=== PATIENT | male | born 1930 | race Caucasian/White ===

== ENCOUNTER 2018-02-07 12:18 | Inpatient (IN) | payer MEDICAID, MEDICARE ==
[~2018-02-07] VITALS: Ht 182.9 cm; Wt 88.5 kg
[~2018-02-07 12:18] MED LIST: ATEN50TA8 PO; HYDR-3229 PO; HYDR1TAB32 PO; OMEP40EC1 PO
--- NOTE | 2018-02-07 12:18 | NUR ---
Patient BIBA BLS, transferred to bed 8. RN evaluating patient at bedside.
--- NOTE | 2018-02-07 12:19 | NUR ---
Dr. Moreau evaluating patient at bedside.
[2018-02-07 12:23] VITALS: BP 172/101
--- NOTE | 2018-02-07 12:28 | NUR ---
87 YO MALE BIB EMS FROM FIELD FOR BACK PAIN R/T FALL TODAY. DENIES N/V/D; SKIN IS PINK/WARM/DRY; AAOX4 WITH EVEN AND STEADY GAIT; LUNGS CLEAR BL; HR EVEN AND REGULAR; PT DENIES ANY FEVER, CP, SOB, OR COUGH AT THIS TIME; PATIENT STATES PAIN OF 6/10 AT THIS TIME; VSS; PATIENT POSITIONED FOR COMFORT; HOB ELEVATED; BEDRAILS UP X2; BED DOWN. ER MD MADE AWARE OF PT STATUS.
--- NOTE | 2018-02-07 12:33 | NUR ---
PATIENT TAKEN IN [facility] TO XRAY
--- NOTE | 2018-02-07 12:48 | NUR ---
PATIENT BACK FROM XRAY IN [facility].
--- NOTE | 2018-02-07 12:50 | NUR ---
Dr. Moreau evaluating patient at bedside.
[2018-02-07] MEDS ORDERED: NACL 0.9% 1,000 ML IV ONE (13:10)
[2018-02-07 13:25] LABS: BASOPHILS % (AUTO) 0.4 % (0.0-2.0); EOSINOPHILS % (AUTO) 0.1 % (0.0-4.0); HEMATOCRIT 41.2 % (36-52); HEMOGLOBIN 13.2 g/dL (12.0-18.0); LYMPHOCYTES # (AUTO) 0.9 K/uL (2.0-11.5); LYMPHOCYTES % (AUTO) 9.7 % (20.5-51.1); MEAN CORPUSCULAR HEMOGLOBIN 29 pg (27-31); MEAN CORPUSCULAR HGB CONC 32 g/dL (33-37); MEAN CORPUSCULAR VOLUME 90.4 fL (80-94); MONOCYTES # (AUTO) 0.6 K/uL (0.8-1.0); MONOCYTES % (AUTO) 6.7 % (1.7-9.3); NEUTROPHILS # (AUTO) 7.7 K/uL (1.8-7.7); NEUTROPHILS % (AUTO) 83.1 % (42.2-75.2); PLATELET COUNT (AUTO) 206 K/uL (140-450); RED BLOOD CELL COUNT(AUTO) 4.55 MIL/uL (4.20-6.10); RED CELL DISTRIBUTION WIDTH 14.3 % (11.6-13.7); WHITE BLOOD COUNT (AUTO) 9.3 K/uL (4.8-10.8)
[2018-02-07 13:36] LABS: ANION GAP 18.4 (8-16); CARBON DIOXIDE 25.6 mmol/L (21-32); CHLORIDE 106 mmol/L (98-107); GLUCOSE 100 mg/dL (74-106); SODIUM SERUM 145 mmol/L (136-145); UREA NITROGEN, BLOOD 56 mg/dL (7-18)
[2018-02-07 13:41] LABS: ALBUMIN 4.1 g/dL (3.4-5.0); ASPARTATE AMINOTRANSFERASE 22 U/L (15-37); TOTAL BILIRUBIN 0.6 mg/dL (0.0-1.0)
[2018-02-07] MEDS ORDERED: ASPIRIN 81 MG TAB.CHEW PO ONE (14:10)
[2018-02-07] MEDS ORDERED: ACETAMINOPHEN 325 MG TAB PO PRN (15:05)
[2018-02-07] MEDS ORDERED: ONDANSETRON 4 MG/2 ML VIAL IVP PRN (15:05)
--- NOTE | 2018-02-07 15:40 | NUR ---
Patient will be admitted to care of DR MENDOZA. Admited to MED SURG. Will go to [id number]. Belongings list completed. Report to JOCELYN. PATIENT STABLE.
--- NOTE | 2018-02-07 15:45 | NUR ---
RECEIVED PT FROM ED NURSE JA. PT IS ALERT AND AWAKE, NO S/S OF DISTRESS, NO SOB OR C/O PAIN. PT HAS A CANE THAT HE USES TO WALK. PT IS ON ROOM AIR. DARK DISCOLORATION NOTED ON THE LLE. OLD SURGICAL SCAR NOTED ON THE ABDOMEN. OTHERWISE, SKIN IS INTACT - NO OPEN AREAS. NO EDEMA NOTED. IV SITE NOTED ON THE R AC, 18 GAUGE. PT IS HARD OF HEARING. PT IS MOSTLY CONTINENT, BUT HAS LEAKS IN BED. SINUS RHYTHM ON TELEMETRY. FALL PRECAUTIONS ARE IMPLEMENTED. MRSA NARES SWABBED. CALL LIGHT WITHIN REACH. WILL CONTINUE TO MONITOR.
[2018-02-07 16:50] LABS: APPEARANCE,URINE SLIGHTLY CLOUDY (CLEAR); BILIRUBIN,URINE NEGATIVE (NEGATIVE); BLOOD, URINE 3+ (NEGATIVE); COLOR,URINE YELLOW (YELLOW); LEUKOCYTE ESTERASE ,URINE 1+ (NEGATIVE); NITRITE, URINE NEGATIVE (NEGATIVE); PH,URINE 5.5 (5.0-9.0); UGLUCOSE NEGATIVE (NEGATIVE)
[2018-02-07 16:54] LABS: RBC,URINE 3-10 (FEW) /HPF (0-5); WBC,URINE 20-60 /HPF (0-5)
[2018-02-07 17:10] VITALS: BP 102/69
--- NOTE | 2018-02-07 19:31 | NUR ---
ENDORSED PT TO ORDER BOOKER IN STABLE CONDITION.
--- NOTE | 2018-02-07 19:32 | NUR ---
REPORT RECEIVED FROM AM NURSE AT BEDSIDE. PT IN STABLE CONDITION. AAOX4. NO COMPLAINTS OF PAIN. NO SOB. AFEBRILE. INTRODUCED SELF TO PT. BOARD UPDATED. IV SITE R AC 18G SL PATENT AND INTACT. SKIN WARM, DRY, AND INTACT WITH NO OPEN WOUNDS. PT L LEFT DOES HAVE DISCOLORATION DUE TO OSTEOMYELITIS. BED LOCKED IN LOW POSITION. CALL ESPINAL WITHIN REACH. SAFETY PRECAUTIONS IN PLACE.
[2018-02-07 20:00] VITALS: BP 132/64
[2018-02-07] MEDS: ATENOLOL 50 MG TAB PO SCH (20:18)
--- NOTE | 2018-02-07 20:18 | NUR ---
ATENOLOL GIVEN PO. PT TOLERATED WELL.
[2018-02-07] MEDS: HYDROcodone/APAP 5/325 MG 1 TAB TAB PO PRN (21:45)
--- NOTE | 2018-02-07 21:45 | NUR ---
NORCO GIVEN FOR 6/10 DUE TO PAIN AT THE BLOOD DRAW SITE. PT TOLERATED WELL.
--- NOTE | 2018-02-07 22:22 | NUR ---
LAB CALL FOR CRITICAL VALUE TROPONIN OF 0.121. [facility] GROUP WAS CALLED.
--- NOTE | 2018-02-07 22:28 | NUR ---
DR CUMMINS LEASING ASSOCIATE AND CALLED BACK. NOTIFIED OF TROPONIN OF 0.121. NO CHANGES IN ORDERS.
[2018-02-08] VITALS: BP 144/62
--- NOTE | 2018-02-08 01:15 | NUR ---
PT SLEEPING COMFORTABLY. NO S/S OF DISTRESS NOTED. WILL CONTINUE TO MONITOR.
--- NOTE | 2018-02-08 02:40 | NUR ---
PT SLEEPING COMFORTABLY. NO S/S OF DISTRESS NOTED. RESPIRATIONS EVEN, UNLABORED, AND WNL. ALL NEEDS MET AT THIS TIME. WILL CONTINUE TO MONITOR.
[2018-02-08 04:00] VITALS: BP 134/53
--- NOTE | 2018-02-08 04:15 | NUR ---
PT SLEEPING COMFORTABLY. NO S/S OF DISTRESS NOTED. NO COMPLAINTS OF PAIN. NO SOB. WILL CONTINUE TO MONITOR.
[2018-02-08] MEDS: PANTOPRAZOLE 40 MG TABEC PO SCH (05:36)
--- NOTE | 2018-02-08 05:36 | NUR ---
PROTONIX GIVEN PO. PT TOLERATED WELL.
[2018-02-08 07:04] LABS: BASOPHILS # (AUTO) 0.1 K/uL (0.00-0.22); BASOPHILS % (AUTO) 0.9 % (0.0-2.0); EOSINOPHILS # (AUTO) 0.1 K/uL (0-0.4); EOSINOPHILS % (AUTO) 1.5 % (0.0-4.0); HEMATOCRIT 38.4 % (36-52); HEMOGLOBIN 12.1 g/dL (12.0-18.0); LYMPHOCYTES # (AUTO) 1.2 K/uL (2.0-11.5); LYMPHOCYTES % (AUTO) 15.8 % (20.5-51.1); MEAN CORPUSCULAR HEMOGLOBIN 29 pg (27-31); MEAN CORPUSCULAR HGB CONC 32 g/dL (33-37); MEAN CORPUSCULAR VOLUME 91.7 fL (80-94); MONOCYTES # (AUTO) 0.6 K/uL (0.8-1.0); MONOCYTES % (AUTO) 7.9 % (1.7-9.3); NEUTROPHILS # (AUTO) 5.5 K/uL (1.8-7.7); NEUTROPHILS % (AUTO) 73.9 % (42.2-75.2); PLATELET COUNT (AUTO) 196 K/uL (140-450); RED BLOOD CELL COUNT(AUTO) 4.19 MIL/uL (4.20-6.10); RED CELL DISTRIBUTION WIDTH 14.4 % (11.6-13.7); WHITE BLOOD COUNT (AUTO) 7.4 K/uL (4.8-10.8)
--- NOTE | 2018-02-08 07:15 | NUR ---
RECEIVED PATIENT REPORT AT BEDSIDE. PATIENT AWAKE, ALERT AND ORIENTED. NO S/S OF DISTRESS NOTED. DENIES PAIN AT THIS TIME. PATIENT ON ROOM AIR. PATIENT ON TELE MONITORING. BED LOWERED WITH CALL LIGHT WITHIN REACH. WILL CONTINUE TO MONITOR
[2018-02-08 07:20] LABS: ALBUMIN 3.3 g/dL (3.4-5.0); ANION GAP 12.7 (8-16); ASPARTATE AMINOTRANSFERASE 25 U/L (15-37); CARBON DIOXIDE 26.6 mmol/L (21-32); CHLORIDE 111 mmol/L (98-107); CREATININE 1.6 mg/dL (0.7-1.3); GLUCOSE 100 mg/dL (74-106); POTASSIUM 5.3 mmol/L (3.5-5.1); SODIUM SERUM 145 mmol/L (136-145); TOTAL BILIRUBIN 0.7 mg/dL (0.0-1.0); UREA NITROGEN, BLOOD 46 mg/dL (7-18)
--- NOTE | 2018-02-08 07:25 | NUR ---
REPORT GIVEN TO AM NURSE AT BEDSIDE. PT IN STABLE CONDITION.
[2018-02-08 08:00] VITALS: BP 156/60
--- NOTE | 2018-02-08 08:30 | NUR ---
PATIENT EVALUATED BY PT
--- NOTE | 2018-02-08 08:50 | NUR ---
PATIENT HAS BEEN SCREENED AND CATEGORIZED MODERATE NUTRITION RISK. PATIENT WILL BE SEEN WITHIN 3-5 DAYS OF ADMISSION. 02/10/18 02/12/[address]
[2018-02-08] MEDS ORDERED: NON-FORMULARY ITEM (Omeprazole* (Prilosec*) 20 MG) PO SCH (09:00)
[2018-02-08] MEDS: ATENOLOL 50 MG TAB PO SCH ×2 (09:00→21:00)
[2018-02-08] MEDS ORDERED: LOSARTAN PO SCH (09:00)
[2018-02-08] MEDS ORDERED: HYDROCHLOROTHIAZIDE PO SCH (09:00)
[2018-02-08] MEDS: LOSARTAN 50 MG TAB PO SCH (09:20)
[2018-02-08] MEDS: HYDROCHLOROTHIAZIDE 25 MG TAB PO SCH (09:20)
[2018-02-08] MEDS: ENOXAPARIN 30 MG/0.3 ML SYR SUBQ SCH (09:23)
--- NOTE | 2018-02-08 11:03 | NUR ---
Social Social Note: I faxed inquiry to [facility], phone number . Physical therapy evaluation is pending at this time, telephonic case manager Celeste made aware. Addendum: 02/08/18 at 1338 by Odette Subramanian SS correction, Social Service Note:
--- NOTE | 2018-02-08 11:41 | NUR ---
CM NOTE PER [facility] ALLAN NICHOLS # [phone] [phone], TO FAX DC PLANNING ORDERS OR DC NEEDS TO FAX# [phone]. ORDER FOR REFERRAL TO SNF ([facility] PREFERRED BASED ON PHYSICIAN AND PATIENT PREFERENCE), H&P, AND LIST OF MEDICATIONS TO [facility]. PHYSICAL THERAPY EVAL REPORT PENDING. PER ALLAN NICHOLS THEY ARE CONTRACTED WITH [facility]. WILLIAM CONDE.
[2018-02-08 12:00] VITALS: BP 146/59
--- NOTE | 2018-02-08 12:21 | NUR ---
ALLAN NOTE PHYSICAL THERAPY EVAL REPORT FAXED TO [facility] [phone] ATTN: ALLAN NICHOLS PH# [phone] [phone]
[2018-02-08] MEDS: DEXT 5% / NACL 0.45% 1,000 ML IV SCH ×3 (12:45→17:42)
[2018-02-08] MEDS: HYDROcodone/APAP 5/325 MG 1 TAB TAB PO PRN (12:45)
--- NOTE | 2018-02-08 13:15 | NUR ---
CM NOTE PER [facility] ALLAN NICHOLS PH# [phone] [phone], FOR TRANSPORTATION GOING TO THE SNF TO USE [employer] PH# [phone] NO AUTHORIZATION IS REQUIRED. ALLAN NICHOLS ALSO STATED TO HAVE THE ACCEPTING SNF CALL HER FOR THE AUTHORIZATION FOR THE SNF. WILLIAM CONDE.
--- NOTE | 2018-02-08 13:39 | NUR ---
Social Service Note: I called and spoke with Catie at [facility], phone number , she stated they received inquiry and they don't have any beds available today but will have a bed available for patient tomorrow. I provided her with porter sample case Minal from [facility] contact information, phone number ext [phone] for snf authorization. Addendum: 02/08/18 at 1516 by Odette MCCLELLAND Correction: Per Catie at [facility], phone number , their respiratory care program director is still reviewing inquiry, patient has not been accepted at this time.
[2018-02-08 16:00] VITALS: BP 155/63
--- NOTE | 2018-02-08 17:29 | NUR ---
MADE DR MENDOZA AWARE THAT THE BED AT THE SNF FOR THE PATIENT WILL NOT BE AVAILABLE UNTIL TOMORROW.
--- NOTE | 2018-02-08 19:24 | NUR ---
PATIENT REPORT GIVEN AT BEDSIDE. PATIENT ENDORSED IN STABLE CONDITION
--- NOTE | 2018-02-08 19:25 | NUR ---
REPORT RECEIVED FROM AM NURSE AT BEDSIDE. PT IN STABLE CONDITION. AAOX3. INTRODUCED SELF TO PT. BOARD UPDATED. NO COMPLAINTS OF PAIN. NO SOB. AFEBRILE. IV SITE R AC 18G RUNNING D5 1/2NS@75ML/HR PATENT AND INTACT. SKIN WARM, DRY, AND INTACT WITH NO OPEN WOUNDS. BED LOCKED IN LOW POSITION. CALL ESPINAL WITHIN REACH. SAFETY PRECAUTIONS IN PLACE.
[2018-02-08 20:00] VITALS: BP 144/56
--- NOTE | 2018-02-08 21:48 | NUR ---
ATENOLOL HELD DUE TO DECREASED PULSE OF 48.
--- NOTE | 2018-02-08 23:15 | NUR ---
PT SLEEPING COMFORTABLY IN BED SUPINE BUT AROUSEABLE. NO S/S OF DISTRESS NOTED. WILL CONTINUE TO MONITOR.
[2018-02-09] VITALS (7 sets, daily range): BP systolic 109–173; BP diastolic 55–72
--- NOTE | 2018-02-09 00:45 | NUR ---
PT IV LEAKING. TIGHTENED THE CONNECTOR AND RETAPED IV SITE. WILL CONTINUE TO MONITOR.
--- NOTE | 2018-02-09 01:50 | NUR ---
PT SLEEPING COMFORTABLY IN BED. NO S/S OF DISTRESS NOTED. BREATHING EVEN, UNLABORED, AND WNL. ALL NEEDS MET AT THIS TIME. WILL CONTINUE TO MONITOR.
[2018-02-09] MEDS: DEXT 5% / NACL 0.45% 1,000 ML IV SCH (03:30)
--- NOTE | 2018-02-09 03:30 | NUR ---
PT SLEEPING COMFORTABLY. NO S/S OF DISTRESS NOTED. NO COMPLAINTS OF PAIN. NO SOB. ALL NEEDS MET AT THIS TIME.
[2018-02-09] MEDS: PANTOPRAZOLE 40 MG TABEC PO SCH (05:40)
--- NOTE | 2018-02-09 05:40 | NUR ---
PROTONIX GIVEN PO. PT TOLERATED WELL.
[2018-02-09 06:36] LABS: BASOPHILS % (AUTO) 0.7 % (0.0-2.0); EOSINOPHILS # (AUTO) 0.2 K/uL (0-0.4); EOSINOPHILS % (AUTO) 2.3 % (0.0-4.0); HEMATOCRIT 41.1 % (36-52); HEMOGLOBIN 13.3 g/dL (12.0-18.0); LYMPHOCYTES # (AUTO) 1.2 K/uL (2.0-11.5); LYMPHOCYTES % (AUTO) 16.5 % (20.5-51.1); MEAN CORPUSCULAR HEMOGLOBIN 29 pg (27-31); MEAN CORPUSCULAR HGB CONC 32 g/dL (33-37); MEAN CORPUSCULAR VOLUME 90.9 fL (80-94); MONOCYTES # (AUTO) 0.7 K/uL (0.8-1.0); MONOCYTES % (AUTO) 9.2 % (1.7-9.3); NEUTROPHILS # (AUTO) 5.3 K/uL (1.8-7.7); NEUTROPHILS % (AUTO) 71.3 % (42.2-75.2); PLATELET COUNT (AUTO) 197 K/uL (140-450); RED BLOOD CELL COUNT(AUTO) 4.52 MIL/uL (4.20-6.10); RED CELL DISTRIBUTION WIDTH 14.4 % (11.6-13.7); WHITE BLOOD COUNT (AUTO) 7.4 K/uL (4.8-10.8)
[2018-02-09 06:59] LABS: ALBUMIN 3.4 g/dL (3.4-5.0); ANION GAP 9.8 (8-16); ASPARTATE AMINOTRANSFERASE 28 U/L (15-37); CARBON DIOXIDE 30.8 mmol/L (21-32); CHLORIDE 108 mmol/L (98-107); CREATININE 1.4 mg/dL (0.7-1.3); GLUCOSE 119 mg/dL (74-106); POTASSIUM 4.6 mmol/L (3.5-5.1); SODIUM SERUM 144 mmol/L (136-145); TOTAL BILIRUBIN 0.5 mg/dL (0.0-1.0); UREA NITROGEN, BLOOD 30 mg/dL (7-18)
--- NOTE | 2018-02-09 07:12 | NUR ---
REPORT GIVEN TO AM NURSE AT BEDSIDE. PT IN STABLE CONDITION.
[2018-02-09] MEDS: HYDROCHLOROTHIAZIDE 25 MG TAB PO SCH (08:07)
[2018-02-09] MEDS: HYDROcodone/APAP 5/325 MG 1 TAB TAB PO PRN ×2 (08:08→13:01)
[2018-02-09] MEDS: LOSARTAN 50 MG TAB PO SCH (08:08)
[2018-02-09] MEDS: ENOXAPARIN 30 MG/0.3 ML SYR SUBQ SCH (08:10)
[2018-02-09] MEDS: ATENOLOL 50 MG TAB PO SCH ×2 (09:00→20:01)
--- NOTE | 2018-02-09 12:24 | NUR ---
CALLED [facility] EARLIER THIS MORNING AND ASKED IF THEY ACCEPTED THIS PATIENT AND IF THEY HAD A ROOM. SHE SAID SHE WOULD CALL ME BACK. I CALLED HER AGAIN AND SHE SAID HE WAS ACCEPTED BUT SHE HAD NO MALE BEDS TODAY.
--- NOTE | 2018-02-09 12:30 | NUR ---
CALLED [facility] AND SPOKE WITH JON. PHONE [phone]. SHE SAID SHE WOULD FAX ME A LIST OF CONTRACTED SNF'S. SHE ALSO SAID THAT [facility] IS AVAILABLE 12/09 AT [phone].
--- NOTE | 2018-02-09 14:28 | NUR ---
SPOKE WITH THE PATIENT. HE SAID HE GET ABOUT $1100 A MONTH FROM [employer] AND HE SAYS IT GOES THE THE ASSISTED LIVING [place]. PHONE [phone]. CALLED FARIDEH FROM [facility] AND [facility]. SHE SAID THEY WILL STILL BE LOOKING FOR PLACEMENT.
--- NOTE | 2018-02-09 14:28 | NUR ---
FAXED INQUIRY TO [facility] AND [facility].
--- NOTE | 2018-02-09 14:50 | NUR ---
RECEIVED A CALL FROM NURIA FROM [facility]. THEY CANNOT ACCEPT THE PATIENT.
--- NOTE | 2018-02-09 15:22 | NUR ---
SPOKE WITH FARIDEH FROM [facility] AND [facility]. THEY ARE STILL CHECKING TO SEE IF THEY CAN TAKE THE PATIENT. I GAVE HER THE PHONE NUMBER TO THE FLOOR IN CASE THEY CAN ACCEPT THE PATIEN. I SPOKE WITH YOLANDA FROM [facility]. THEY HAVE DECLINED THE PATIENT.
[2018-02-09] MEDS: MUPIROCIN CA NASAL 2% 1GM TUBE NS SCH (17:13)
--- NOTE | 2018-02-09 17:20 | NUR ---
BP 173/65. NO S/S OF DISTRESS NOTED. DR MENDOZA NOTIFIED. ORDERS AMLODIPINE 5MG QDAY. FIRST DOSE NOW. WILL CONTINUE TO MONITOR
[2018-02-09] MEDS ORDERED: amLODIPine 5 MG TAB PO SCH (17:25)
[2018-02-09] MEDS: CHLORHEXADINE GLUC 2% CLOTH TP SCH (17:25)
--- NOTE | 2018-02-09 18:49 | NUR ---
RECHECKED PT'S BP 135/56. PT STABLE. NO S/S OF DISTRESS NOTED.
--- NOTE | 2018-02-09 19:43 | NUR ---
PATIENT REPORT GIVEN AT BEDSIDE. PATIENT ENDORSED IN STABLE CONDITION
--- NOTE | 2018-02-09 19:45 | NUR ---
RECEIVED REPORT FROM DAYSHIFT NURSE AT BEDSIDE FOR CONTINUITY OF CARE. PT AAOX3. NO SOB NO S/S OF DISTRESS ON RA. IV NOTED LFA 22G SALINE LOCK. BED LOWERED CALL LIGHT WITHIN REACH AND BED ALARM PLACED WILL CONTINUE TO MONITOR.
--- NOTE | 2018-02-09 23:28 | NUR ---
PT UP IN BED. AWAKE ALERT. WILL CONTINUE TO MONITOR.
[2018-02-10 04:00] VITALS: BP 117/63
[2018-02-10] MEDS: PANTOPRAZOLE 40 MG TABEC PO SCH (06:22)
--- NOTE | 2018-02-10 07:15 | NUR ---
ENDORSED REPORT TO DAYSHIFT NURSE AT BEDSIDE FOR CONTINUITY OF CARE.
--- NOTE | 2018-02-10 07:16 | NUR ---
RECEIVED REPORT FROM GREEN PROMOTIONS SPECIALIST NURSE. PATIENT LYING DOWN IN BED COMFORTABLY. NO DISTRESS NOTED. DENIES ANY PAIN. RESPIRATIONS EVEN, UNLABORED, ON ROOM AIR. LUNGS CTA ON ALL LOBES. AAOX4, CALM, COOPERATIVE, APPROPRIATE AFFECT, SKIN COLOR APPROPRIATE TO ETHNICITY, WARM TO TOUCH. SKIN IS INTACT. IV SITE INTACT, PATENT, AND ON SALINE LOCK. ABDOMEN SOFT, NON-DISTENDED. REVIEWED PLAN OF CARE WITH PATIENT. PATIENT VERBALIZED UNDERSTANDING. SAFETY MEASURES IN PLACE, CALL LIGHT WITHIN REACH. WILL CONTINUE TO MONITOR.
[2018-02-10 07:43] LABS: BASOPHILS # (AUTO) 0.1 K/uL (0.00-0.22); BASOPHILS % (AUTO) 0.7 % (0.0-2.0); EOSINOPHILS # (AUTO) 0.2 K/uL (0-0.4); EOSINOPHILS % (AUTO) 3.1 % (0.0-4.0); HEMATOCRIT 40.8 % (36-52); LYMPHOCYTES # (AUTO) 1.1 K/uL (2.0-11.5); LYMPHOCYTES % (AUTO) 15.5 % (20.5-51.1); MEAN CORPUSCULAR HEMOGLOBIN 29 pg (27-31); MEAN CORPUSCULAR HGB CONC 32 g/dL (33-37); MONOCYTES # (AUTO) 0.7 K/uL (0.8-1.0); MONOCYTES % (AUTO) 9.4 % (1.7-9.3); NEUTROPHILS # (AUTO) 5.1 K/uL (1.8-7.7); NEUTROPHILS % (AUTO) 71.3 % (42.2-75.2); PLATELET COUNT (AUTO) 194 K/uL (140-450); RED BLOOD CELL COUNT(AUTO) 4.49 MIL/uL (4.20-6.10); RED CELL DISTRIBUTION WIDTH 14.6 % (11.6-13.7); WHITE BLOOD COUNT (AUTO) 7.2 K/uL (4.8-10.8)
[2018-02-10 07:53] LABS: ALBUMIN 3.1 g/dL (3.4-5.0); ANION GAP 10.8 (8-16); ASPARTATE AMINOTRANSFERASE 23 U/L (15-37); CARBON DIOXIDE 29.9 mmol/L (21-32); CHLORIDE 108 mmol/L (98-107); CREATININE 1.2 mg/dL (0.7-1.3); GLUCOSE 112 mg/dL (74-106); POTASSIUM 4.7 mmol/L (3.5-5.1); SODIUM SERUM 144 mmol/L (136-145); TOTAL BILIRUBIN 0.5 mg/dL (0.0-1.0); UREA NITROGEN, BLOOD 25 mg/dL (7-18)
[2018-02-10 08:00] VITALS: BP 134/65
[2018-02-10] MEDS: LOSARTAN 50 MG TAB PO SCH (08:46)
[2018-02-10] MEDS: amLODIPine 5 MG TAB PO SCH (08:46)
[2018-02-10] MEDS: HYDROCHLOROTHIAZIDE 25 MG TAB PO SCH (08:46)
[2018-02-10] MEDS: ATENOLOL 50 MG TAB PO SCH ×2 (08:47→20:04)
[2018-02-10] MEDS: ENOXAPARIN 30 MG/0.3 ML SYR SUBQ SCH (08:48)
--- NOTE | 2018-02-10 08:52 | NUR ---
PATIENT LYING DOWN IN BED COMFORTABLY. NO DISTRESS NOTED. DENIES ANY PAIN. SCHEDULED MEDICATIONS DUE GIVEN. WILL CONTINUE TO MONITOR.
--- NOTE | 2018-02-10 09:30 | NUR ---
APPLIED ABDOMINAL BINDER TO PATIENT ABDOMEN PER DR. MARSHALL ORDERS DUE TO PATIENT COMPLAINING OF ABD PAIN DUE TO ABD HERNIA. WILL CONTINUE TO MONITOR.
--- NOTE | 2018-02-10 11:30 | NUR ---
PATIENT WALKED TO BATHROOM AND BACK TO BED INDEPENDENTLY WITH STEADY GAIT. NO DISTRESS NOTED. WILL CONTINUE TO MONITOR.
[2018-02-10 12:00] VITALS: BP 115/79
--- NOTE | 2018-02-10 14:35 | NUR ---
PATIENT LYING DOWN IN BED SLEEPING, AROUSABLE BY VOICE. CONDITION UNCHANGED. WILL CONTINUE TO MONITOR.
--- NOTE | 2018-02-10 15:00 | NUR ---
Sports Instructor notes : I called [facility] at to check if they review Patients Inquire for SNF long-term prison care placement. I spoke to Catie White at from admissions. Per Catie she is discussing patient's case with truck supervisor and they are considering patient for acceptance when there is a bed open for prison however; she will have to come to [facility] to meet with patient and evaluate him and see if he is appropriate for their facility. per Catie, unfortunately during the holidays there will be no prison bed opening and she wont be able to come see and evaluate Patient until possibly Monday02/14/18. Per Catie she will keep [facility] staff aware if there any changes and bed openings. I thanked her for the information and assistance, then ended the call.
[2018-02-10] MEDS: MUPIROCIN CA NASAL 2% 1GM TUBE NS SCH (15:52)
[2018-02-10] MEDS: CHLORHEXADINE GLUC 2% CLOTH TP SCH (15:54)
[2018-02-10 16:00] VITALS: BP 149/83
--- NOTE | 2018-02-10 17:15 | NUR ---
PATIENT LYING DOWN IN BED WATCHING TV. NO DISTRESS NOTED. DENIES ANY PAIN. WILL CONTINUE TO MONITOR.
--- NOTE | 2018-02-10 19:24 | NUR ---
GAVE REPORT TO NEUROLOGY PROFESSOR NURSE FOR CONTINUITY OF CARE. WILL CONTINUE TO MONITOR.
--- NOTE | 2018-02-10 19:25 | NUR ---
REPORT RECEIVED FROM AM NURSE AT BEDSIDE. PT IN STABLE CONDITION. AAOX4. INTRODUCED SELF TO PT. BOARD UPDATED. NO COMPLAINTS OF PAIN. NO SOB. AFEBRILE. IV SITE L FA 22G SL PATENT AND INTACT. SKIN WARM, DRY, AND INTACT WITH NO OPEN WOUNDS. BED LOCKED IN LOW POSITION. CALL ESPINAL WITHIN REACH. SAFETY PRECAUTIONS IN PLACE. ALL NEEDS MET AT THIS TIME. WILL CONTINUE TO MONITOR.
[2018-02-10 20:00] VITALS: BP 147/70
--- NOTE | 2018-02-10 20:04 | NUR ---
ATENOLOL GIVEN. BP 147/70 AND HR IS 88. PT TOLERATED WELL.
--- NOTE | 2018-02-10 23:30 | NUR ---
PT ASLEEP BUT AROUSEABLE. VS STABLE. NO S/S OF DISTRESS NOTED. ALL NEEDS MET AT THIS TIME. WILL CONTINUE TO MONITOR.
[2018-02-11] VITALS: BP 152/59
[2018-02-11] MEDS ORDERED: PNEUMOCOCCAL VACCINE 23 MCG/0.5 ML VIAL IMVAC PRN (00:45)
--- NOTE | 2018-02-11 01:45 | NUR ---
PT SLEEPING COMFORTABLY. NO S/S OF DISTRESS NOTED. ALL NEEDS MET AT THIS TIME. WILL CONTINUE TO MONITOR.
--- NOTE | 2018-02-11 03:50 | NUR ---
PT SLEEPING COMFORTABLY. NO S/S OF DISTRESS NOTED. NO COMPLAINTS OF PAIN. NO SOB. AFEBRILE. ALL NEEDS MET AT THIS TIME.
[2018-02-11 04:00] VITALS: BP 146/63
[2018-02-11] MEDS: PANTOPRAZOLE 40 MG TABEC PO SCH (05:38)
--- NOTE | 2018-02-11 05:38 | NUR ---
PROTONIX GIVEN PO. PT TOLERATED WELL.
[2018-02-11 06:51] LABS: BASOPHILS # (AUTO) 0.1 K/uL (0.00-0.22); BASOPHILS % (AUTO) 0.7 % (0.0-2.0); EOSINOPHILS # (AUTO) 0.3 K/uL (0-0.4); EOSINOPHILS % (AUTO) 2.7 % (0.0-4.0); HEMATOCRIT 41.8 % (36-52); HEMOGLOBIN 13.4 g/dL (12.0-18.0); LYMPHOCYTES # (AUTO) 1.2 K/uL (2.0-11.5); LYMPHOCYTES % (AUTO) 12.7 % (20.5-51.1); MEAN CORPUSCULAR HEMOGLOBIN 29 pg (27-31); MEAN CORPUSCULAR HGB CONC 32 g/dL (33-37); MEAN CORPUSCULAR VOLUME 90.9 fL (80-94); MONOCYTES # (AUTO) 0.8 K/uL (0.8-1.0); MONOCYTES % (AUTO) 8.4 % (1.7-9.3); NEUTROPHILS % (AUTO) 75.5 % (42.2-75.2); PLATELET COUNT (AUTO) 216 K/uL (140-450); RED CELL DISTRIBUTION WIDTH 14.2 % (11.6-13.7); WHITE BLOOD COUNT (AUTO) 9.2 K/uL (4.8-10.8)
--- NOTE | 2018-02-11 07:05 | NUR ---
REPORT GIVEN TO AM NURSE AT BEDSIDE. PT IN STABLE CONDITION.
--- NOTE | 2018-02-11 07:06 | NUR ---
RECEIVED REPORT FROM AUDIT CONSULTANT NURSE. PATIENT LYING DOWN IN BED COMFORTABLY. NO DISTRESS NOTED. DENIES ANY PAIN. RESPIRATIONS EVEN, UNLABORED, ON ROOM AIR. LUNGS CTA ON ALL LOBES. AAOX4, CALM, COOPERATIVE, APPROPRIATE AFFECT, SKIN COLOR APPROPRIATE TO ETHNICITY, WARM TO TOUCH. SKIN IS INTACT. IV SITE INTACT, PATENT, AND ON SALINE LOCK. ABDOMEN SOFT, NON-DISTENDED. HAS ABDOMINAL HERNIA FOR 3 YEARS PER PATIENT REPORTS. ABDOMINAL BINDER ON PATIENT TO HELP WITH ABD HERNIA PAIN. REVIEWED PLAN OF CARE WITH PATIENT. PATIENT VERBALIZED UNDERSTANDING. SAFETY MEASURES IN PLACE, CALL LIGHT WITHIN REACH. WILL CONTINUE TO MONITOR.
[2018-02-11 07:28] LABS: ALBUMIN 3.3 g/dL (3.4-5.0); ANION GAP 10.8 (8-16); ASPARTATE AMINOTRANSFERASE 19 U/L (15-37); CARBON DIOXIDE 29.8 mmol/L (21-32); CHLORIDE 107 mmol/L (98-107); CREATININE 1.2 mg/dL (0.7-1.3); GLUCOSE 122 mg/dL (74-106); POTASSIUM 4.6 mmol/L (3.5-5.1); SODIUM SERUM 143 mmol/L (136-145); TOTAL BILIRUBIN 0.3 mg/dL (0.0-1.0); UREA NITROGEN, BLOOD 26 mg/dL (7-18)
[2018-02-11 08:00] VITALS: BP 147/66
[2018-02-11] MEDS: ATENOLOL 50 MG TAB PO SCH ×2 (09:00→20:48)
[2018-02-11] MEDS: HYDROCHLOROTHIAZIDE 25 MG TAB PO SCH (09:23)
[2018-02-11] MEDS: LOSARTAN 50 MG TAB PO SCH (09:23)
[2018-02-11] MEDS: amLODIPine 5 MG TAB PO SCH (09:23)
[2018-02-11] MEDS: ENOXAPARIN 30 MG/0.3 ML SYR SUBQ SCH (09:24)
--- NOTE | 2018-02-11 09:30 | NUR ---
PATIENT LYING DOWN IN BED WATCHING TV. NO DISTRESS NOTED. DENIES ANY PAIN. SCHEDULED MEDICATIONS DUE GIVEN. WILL CONTINUE TO MONITOR.
--- NOTE | 2018-02-11 11:08 | NUR ---
PATIENT SITTING IN BED WATCHING TV. NO DISTRESS NOTED. DENIES ANY PAIN. CONDITION UNCHANGED. WILL CONTINUE TO MONITOR.
[2018-02-11 12:00] VITALS: BP 108/69
--- NOTE | 2018-02-11 13:40 | NUR ---
PATIENT LYING DOWN IN BED WATCHING TV. NO DISTRESS NOTED. DENIES ANY PAIN. CONDITION UNCHANGED. WILL CONTINUE TO MONITOR.
--- NOTE | 2018-02-11 15:30 | NUR ---
PATIENT LYING DOWN IN BED WATCHING TV. NO DISTRESS NOTED. CONDITION UNCHANGED. WILL CONTINUE TO MONITOR.
[2018-02-11] MEDS: CHLORHEXADINE GLUC 2% CLOTH TP SCH (15:46)
[2018-02-11] MEDS: MUPIROCIN CA NASAL 2% 1GM TUBE NS SCH (15:46)
[2018-02-11 16:00] VITALS: BP 145/61
--- NOTE | 2018-02-11 17:07 | NUR ---
PATIENT LYING DOWN IN BED SLEEPING, AROUSABLE BY VOICE. CONDITION UNCHANGED. WILL CONTINUE TO MONITOR.
--- NOTE | 2018-02-11 19:33 | NUR ---
GAVE REPORT TO STOREKEEPER STEWARD NURSE FOR CONTINUITY OF CARE. PATIENT IN STABLE CONDITION.
[2018-02-11 20:00] VITALS: BP 97/57
--- NOTE | 2018-02-11 20:48 | NUR ---
ATENOLOL HELD DUE TO DECREASED BP OF 97/57 AND HR OF 59.
--- NOTE | 2018-02-11 23:30 | NUR ---
PT SLEEPING COMFORTABLY IN BED LEFT LATERAL BUT AROUSEABLE. NO S/S OF DISTRESS NOTED. NO COMPLAINTS OF PAIN. NO SOB. AFEBRILE. ALL NEEDS MET AT THIS TIME.
[2018-02-12] VITALS: BP 148/56
--- NOTE | 2018-02-12 02:00 | NUR ---
PT SLEEPING COMFORTABLY IN BED. NO S/S OF DISTRESS NOTED. RESPIRATIONS EVEN, UNLABORED, AND WNL. WILL CONTINUE TO MONITOR.
--- NOTE | 2018-02-12 03:45 | NUR ---
PT SLEEPING BUT AROUSEABLE. VS STABLE. NO S/S OF DISTRESS NOTED. RESPIRATIONS EVEN, UNLABORED, AND WNL. ALL NEEDS MET AT THIS TIME. WILL CONTINUE TO MONITOR.
[2018-02-12 04:00] VITALS: BP 128/55
[2018-02-12] MEDS: PANTOPRAZOLE 40 MG TABEC PO SCH (05:33)
--- NOTE | 2018-02-12 05:33 | NUR ---
PROTONIX GIVEN PO. PT TOLERATED WELL.
--- NOTE | 2018-02-12 07:10 | NUR ---
REPORT GIVEN TO AM NURSE AT BEDSIDE. PT IN STABLE CONDITION.
--- NOTE | 2018-02-12 07:11 | NUR ---
RECEIVED REPORT FROM DIRECTOR OF EVENT SALES NURSE. PATIENT LYING DOWN IN BED COMFORTABLY. NO DISTRESS NOTED. DENIES ANY PAIN. RESPIRATIONS EVEN, UNLABORED, ON ROOM AIR. LUNGS CTA ON ALL LOBES. AAOX4, CALM, COOPERATIVE, APPROPRIATE AFFECT, SKIN COLOR APPROPRIATE TO ETHNICITY, WARM TO TOUCH. SKIN IS INTACT. IV SITE INTACT, PATENT, AND ON SALINE LOCK. ABDOMEN SOFT, NON-DISTENDED. HAS ABDOMINAL HERNIA FOR 3 YEARS PER PATIENT REPORTS. ABDOMINAL BINDER ON PATIENT TO HELP WITH ABD HERNIA PAIN. REVIEWED PLAN OF CARE WITH PATIENT. PATIENT VERBALIZED UNDERSTANDING. SAFETY MEASURES IN PLACE, CALL LIGHT WITHIN REACH. WILL CONTINUE TO MONITOR.
[2018-02-12 08:00] VITALS: BP 158/70
[2018-02-12] MEDS: ENOXAPARIN 30 MG/0.3 ML SYR SUBQ SCH (08:22)
[2018-02-12] MEDS: ATENOLOL 50 MG TAB PO SCH ×2 (08:23→20:15)
[2018-02-12] MEDS: HYDROCHLOROTHIAZIDE 25 MG TAB PO SCH (08:23)
[2018-02-12] MEDS: amLODIPine 5 MG TAB PO SCH (08:23)
[2018-02-12] MEDS: LOSARTAN 50 MG TAB PO SCH (08:23)
--- NOTE | 2018-02-12 08:26 | NUR ---
PATIENT SITTING IN BED EATING BREAKFAST. NO DISTRESS NOTED. SCHEDULED MEDICATIONS DUE GIVEN. WILL CONTINUE TO MONITOR.
--- NOTE | 2018-02-12 10:40 | NUR ---
PATIENT SITTING AT BEDSIDE CHAIR WATCHING TV. NO DISTRESS NOTED. DENIES ANY PAIN. SCHEDULED MEDICATIONS DUE GIVEN. WILL CONTINUE TO MONITOR.
--- NOTE | 2018-02-12 11:45 | NUR ---
Physical Therapy Assistant Instructor Note: I called and spoke with Catie from [facility] , per Catie, her funeral home director would like her to come to hospital, meet with patient, and determine if patient has any behavioral concerns. 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 Catie told me she will be coming to our hospital today to meet with patient. I faxed inquiries to the following snfs, in case [facility] cannot accept patient: [facility]
[2018-02-12 12:00] VITALS: BP 104/65
--- NOTE | 2018-02-12 12:20 | NUR ---
Asset Protection Lead Note: Per Oliva from [facility] , they received inquiry, they don't have any beds available at this time and aren't anticipating having today or tomorrow. Per Simran from [facility] , their digital associate media director will review inquiry and Simran will call me back with a response. Per hospice patient care secretary at [facility] , their admission coordinator Freya and their digital associate media director are not in the building today. She stated I contact Freya and provided me with her cell phone number . I called Freya, no answer, left message. Pending response from [facility]
--- NOTE | 2018-02-12 12:28 | NUR ---
Clinical Trial Assistant Note: Per Oliva from [facility] , they received inquiry, they don't have any beds available at this time and aren't anticipating having today or tomorrow. Per Simran from [facility] , their director of design will review inquiry and Simran will call me back with a response. Per legal administrative secretary at [facility] , their admission coordinator Freya and their director of design are not in the building today. She stated I contact Freya and provided me with her cell phone number . I called Freya, no answer, left message. Per Trisha from [facility] , they don't have any beds available at this time.
--- NOTE | 2018-02-12 13:00 | NUR ---
PATIENT LYING DOWN IN BED SLEEPING, AROUSABLE BY VOICE. NO DISTRESS NOTED. DENIES ANY PAIN. WILL CONTINUE TO MONITOR.
--- NOTE | 2018-02-12 13:52 | NUR ---
02/12/18 RD INITIAL ASSESSMENT COMPLETED PLEASE REFER TO NUTRITION ASSESSMENT UNDER CARE ACTIVITY FOR ESTIMATED NUTRITIONAL NEEDS. 1. CONTINUE 2GM NA DIET TOLERATED 2. RD TO PROVIDE CARDIAC EDUCATION ON FOLLOW UP VISIT. 3. RD TO FOLLOW-UP 3-5 DAYS, MODERATE RISK SIMONE LAI, RD
--- NOTE | 2018-02-12 14:19 | NUR ---
Professor Of Vegetable Science Note: Per Simran from [facility] , they dont have a contract with [facility], unable to accept patient. Per admission coordinator Freya from [facility] / , they dont have a contract with [facility]. Per Michelle from [place] [facility] , they have a contract with [facility]. She stated they will review inquiry. She told me they need snf authorization from [facility] before patient is transfer to their facility. I provided her with case assistant Minal from [facility] contact information, phone number ext [phone].
[2018-02-12 16:00] VITALS: BP 128/52
[2018-02-12] MEDS: CHLORHEXADINE GLUC 2% CLOTH TP SCH (16:11)
[2018-02-12] MEDS: MUPIROCIN CA NASAL 2% 1GM TUBE NS SCH (16:11)
--- NOTE | 2018-02-12 16:13 | NUR ---
PATIENT LYING DOWN IN BED SLEEPING, AROSUABLE BY VOICE. NO DISTRESS NOTED. DENIES ANY PAIN. SCHEDULED MEDICATIONS DUE GIVEN. WILL CONTINUE TO MONITOR.
--- NOTE | 2018-02-12 18:00 | NUR ---
PATIENT SITTING IN BED WITH DINNER TRAY IN FRONT. CONDITION UNCHANGED. WILL CONTINUE TO MONITOR.
--- NOTE | 2018-02-12 19:35 | NUR ---
RECEIVED BEDSIDE REPORT FROM RN FREDY, PATIENT IN BED, WATCHING TV, NO SIGN OF ACUTE DISTRESS, ON RA, IV IN LEFT FA, 22 G. ABDOMEN BINDER IN PLACE, UPDATED BOARD, EXPLAINED PLAN OF CARE, CANE AT BEDSIDE, WILL CONTINUE TO MONITOR.
--- NOTE | 2018-02-12 19:35 | NUR ---
GAVE REPORT TO VACUUM TECHNICIAN NURSE FOR CONTINUITY OF CARE. PATIENT IN STABLE CONDITION.
[2018-02-12 20:00] VITALS: BP 107/54
--- NOTE | 2018-02-12 20:00 | NUR ---
BP 98/50 HR 60 PATIENT PLACED WITH HOB FLAT BP 107/54 HR 67. WILL HOLD DUE ATENOLOL.
--- NOTE | 2018-02-12 22:30 | NUR ---
PATIENT SLEEPING IN BED, CALL LIGHT WITHIN REACH, WILL CONTINUE TO MONITOR.
[2018-02-13] VITALS: BP 99/62
--- NOTE | 2018-02-13 | NUR ---
V/S TAKEN NOTED BP 99/62 HR 60-58. WILL CONTINUE TO MONITOR.
--- NOTE | 2018-02-13 02:40 | NUR ---
PATIENT ASLEEP IN BED, NO SIGNS OF DISTRESS, CALL LIGHT WITHIN REACH, WILL CONTINUE TO MONITOR.
--- NOTE | 2018-02-13 03:57 | NUR ---
V/S TAKEN BP 98/60 HR 60. WILL CONTINUE TO MONITOR.
[2018-02-13 04:00] VITALS: BP 98/60
[2018-02-13] MEDS: PANTOPRAZOLE 40 MG TABEC PO SCH (05:30)
--- NOTE | 2018-02-13 06:00 | NUR ---
PATIENT RESTING IN BED, NO SIGNS OF DISTRESS, CALL LIGHT WITHIN REACH WILL CONTINUE TO MONITOR.
--- NOTE | 2018-02-13 07:11 | NUR ---
ENDORSED PATIENT TO DAY SHIFT NURSE, PATIENT STABLE.
--- NOTE | 2018-02-13 07:12 | NUR ---
RECEIVED REPORT FROM FIRE PILOT NURSE. PATIENT LYING DOWN IN BED COMFORTABLY. NO DISTRESS NOTED. DENIES ANY PAIN. RESPIRATIONS EVEN, UNLABORED, ON ROOM AIR. LUNGS CTA ON ALL LOBES. AAOX4, CALM, COOPERATIVE, APPROPRIATE AFFECT, SKIN COLOR APPROPRIATE TO ETHNICITY, WARM TO TOUCH. SKIN IS INTACT. IV SITE INTACT, PATENT, AND ON SALINE LOCK. ABDOMEN SOFT, NON-DISTENDED. HAS ABDOMINAL HERNIA FOR 3 YEARS PER PATIENT REPORTS. ABDOMINAL BINDER ON PATIENT TO HELP WITH ABD HERNIA PAIN. REVIEWED PLAN OF CARE WITH PATIENT. PATIENT VERBALIZED UNDERSTANDING. SAFETY MEASURES IN PLACE, CALL LIGHT WITHIN REACH. WILL CONTINUE TO MONITOR.
[2018-02-13 08:00] VITALS: BP 123/59
[2018-02-13] MEDS: HYDROCHLOROTHIAZIDE 25 MG TAB PO SCH (08:51)
[2018-02-13] MEDS: amLODIPine 5 MG TAB PO SCH (08:51)
[2018-02-13] MEDS: ENOXAPARIN 30 MG/0.3 ML SYR SUBQ SCH (08:53)
[2018-02-13] MEDS: ATENOLOL 50 MG TAB PO SCH ×2 (08:53→20:25)
[2018-02-13] MEDS: LOSARTAN 50 MG TAB PO SCH (08:54)
--- NOTE | 2018-02-13 08:57 | NUR ---
PATIENT SITTING AT BEDSIDE CHAIR. NO DISTRESS NOTED. DENIES ANY PAIN. SCHEDULED MEDICATIONS DUE GIVEN. WILL CONTINUE TO MONITOR.
--- NOTE | 2018-02-13 11:10 | NUR ---
PATIENT SITTING ON CHAIR AT BEDSIDE WATCHING TV. NO DISTRESS NOTED. DENIES ANY PAIN. WILL CONTINUE TO MONITOR.
[2018-02-13 12:00] VITALS: BP 118/59
--- NOTE | 2018-02-13 13:10 | NUR ---
PATIENT SITTING IN BED WATCHING TV. NO DISTRESS NOTED. DENIES ANY PAIN. CONDITION UNCHANGED. WILL CONTINUE TO MONITOR.
[2018-02-13 16:00] VITALS: BP 115/51
--- NOTE | 2018-02-13 16:00 | NUR ---
PATIENT SITTING DOWN IN BED WATCHING TV. NO DISTRESS NOTED. DENIES ANY PAIN. WILL CONTINUE TO MONITOR.
[2018-02-13] MEDS: MUPIROCIN CA NASAL 2% 1GM TUBE NS SCH (16:38)
[2018-02-13] MEDS: CHLORHEXADINE GLUC 2% CLOTH TP SCH (16:39)
--- NOTE | 2018-02-13 17:10 | NUR ---
PATIENT SITTING DOWN AT BEDSIDE CHAIR WATCHING TV. NO DISTRESS NOTED. DENIES ANY PAIN. WILL CONTINUE TO MONITOR.
--- NOTE | 2018-02-13 19:13 | NUR ---
GAVE REPORT TO HORSE TRADER NURSE FOR CONTINUITY OF CARE. PATIENT IN STABLE CONDITION.
--- NOTE | 2018-02-13 19:15 | NUR ---
RECEIVED PT AWAKE ON BED WATCHING TV, VITAL SIGNS STABLE, BP AND HR ON THE LOW SIDE BUT STABLE, DENIES PAIN, PLAN OF CARE DISCUSS, SAFETY MEASURES IN PLACE, MAINTAIN ON CONTACT ISOLATION, CALL LIGHT WITHIN REACH.
[2018-02-13 20:00] VITALS: BP 104/58
--- NOTE | 2018-02-13 21:00 | NUR ---
DUE MEDICATION NOT GIVEN DUE TO DECREASE BP AND HR, PT VOIDING FREELY PER URINAL, ALL NEEDS ATTENDED.
[2018-02-14] VITALS: BP 109/65
--- NOTE | 2018-02-14 | NUR ---
PT SLEEPING, EASILY AROUSABLE, VITAL SIGNS STABLE, DENIES PAIN, CONTINUE TO MONITOR CLOSELY.
[2018-02-14 04:00] VITALS: BP 133/70
--- NOTE | 2018-02-14 04:00 | NUR ---
PT SLEEPING, EASILY AROUSABLE, VITAL SIGNS STABLE, DENIES PAIN, NO CHANGE IN CONDITION, MONITORED CLOSELY.
[2018-02-14] MEDS: PANTOPRAZOLE 40 MG TABEC PO SCH (06:03)
--- NOTE | 2018-02-14 06:06 | NUR ---
DUE MEDICATION ADMINISTERED, DENIES PAIN, NO AM LABS DUE AT THIS TIME, AWAITING SNF FOR PLACEMENT, MONITORED CLOSELY.
--- NOTE | 2018-02-14 07:15 | NUR ---
PT AWAKE, NO SIGNS OF DISTRESS, REPORT GIVEN TO EDIS BANKS FOR CONTINUITY OF CARE.
--- NOTE | 2018-02-14 07:25 | NUR ---
RECEIVED PT REPORT AT BEDSIDE FROM PARTS SALES MANAGER NURSE DIANA. PT IS AWAKE AND ALERT IN BED, WATCHING TV. NO S/S OF DISTRESS, PAIN, OR SOB. PT IS ON ROOM AIR, SKIN IS INTACT. IV SITE NOTED ON THE R HAND, 22 G, SALINE LOCKED. LAST TROPONIN NOTED TO BE 0.086, DRAWN ON 02/09. PT IS ON CONTACT ISO FOR MRSA NARES. FALL PRECAUTIONS IN PLACE. CALL LIGHT IS WITHIN REACH. WILL CONTINUE TO MONITOR.
[2018-02-14 08:00] VITALS: BP 129/59
[2018-02-14] MEDS: ATENOLOL 50 MG TAB PO SCH ×2 (09:00→21:00)
--- NOTE | 2018-02-14 09:10 | NUR ---
PT EATING BREAKFAST AND WATCHING TV, NO S/S OF DISTRESS, NO SOB OR C/O PAIN. WILL CONTINUE TO MONITOR.
[2018-02-14] MEDS: LOSARTAN 50 MG TAB PO SCH (09:35)
[2018-02-14] MEDS: amLODIPine 5 MG TAB PO SCH (09:35)
[2018-02-14] MEDS: ENOXAPARIN 30 MG/0.3 ML SYR SUBQ SCH (09:36)
[2018-02-14 12:00] VITALS: BP 116/70
--- NOTE | 2018-02-14 14:02 | NUR ---
PT LYING IN BED WATCHING TV, NO ACUTE DISTRESS NOTED. CALL LIGHT IS WITHIN REACH. WILL CONTINUE TO MONITOR.
--- NOTE | 2018-02-14 15:30 | NUR ---
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 Pending response from [facility] .
--- NOTE | 2018-02-14 15:33 | NUR ---
CALLED [facility] AND SPOKE WITH BAY. HE SAID THERE ARE NO MALE BEDS AT [facility] OR [facility] CALLED [facility] AND SPOKE WITH KEVIN. NO MALE BEDS. CALLED [facility] . NO ONE THERE FROM ADMITTING. PER JUNE, FAXED INQUIRY TO THEM AT [phone]. PHONE [phone]. CALLED [facility] AND SPOKE WITH DARLING. ADMITTING IS IN A MEETING AND I FAXED INQUIRY TO THEM AT [phone]. CALLED [facility] AND LEFT MESSAGE WITH ADMITTING. [phone]
--- NOTE | 2018-02-14 15:52 | NUR ---
Regulatory Affairs Portfolio Leader Note: Per Michelle from [facility] / , they have a contract with [facility], however, after speaking with their business office she stated they would need to do a letter of agreement with [facility], she stated they don't have a contract with [facility]. Michelle told me her state assessed properties director will review inquiry and she will call me back.
[2018-02-14 16:00] VITALS: BP 112/56
--- NOTE | 2018-02-14 16:26 | NUR ---
Cell Inspector Note: Shawn Angeles from [facility] , they don't have male beds available at this time.
--- NOTE | 2018-02-14 17:30 | NUR ---
PT SEEN BY DR MENDOZA
--- NOTE | 2018-02-14 18:30 | NUR ---
PT ATE 100% OF HIS DINNER. NO ACUTE DISTRESS NOTED. PT IS COMFORTABLY LYING IN BED, WATCHING TV.
--- NOTE | 2018-02-14 19:20 | NUR ---
PT ENDORSED TO FRYER LINE HELPER NURSE IN STABLE CONDITION.
--- NOTE | 2018-02-14 19:27 | NUR ---
RECEIVED PT REPORT AT BEDSIDE AM SHIFT NURSE PT IS AWAKE AND ALERT IN BED, NO S/S OF DISTRESS, PAIN, OR SOB. ON ROOM AIR, SKIN IS INTACT. IV SITE NOTED ON THE R HAND, 22 G, SALINE LOCKED. LAST TROPONIN NOTED TO BE 0.086, DRAWN ON 02/09. PT IS ON CONTACT ISO FOR MRSA NARES. FALL PRECAUTIONS IN PLACE. CALL LIGHT IS WITHIN REACH. WILL CONTINUE TO MONITOR.
[2018-02-14 20:00] VITALS: BP 104/54
--- NOTE | 2018-02-14 20:50 | NUR ---
PT'S TOLERATED MEDICATION, ABLE TO SWALLOW MED WHOLE. PLACED IN UPRIGHT POSITION
[2018-02-15] VITALS (7 sets, daily range): BP systolic 90–144; BP diastolic 49–60
--- NOTE | 2018-02-15 | NUR ---
PT SLEEPING IN STABLE CONDITION
--- NOTE | 2018-02-15 02:00 | NUR ---
PT ASLEEP, NO COMPLAINTS AT THIS TIME.
[2018-02-15] MEDS: PANTOPRAZOLE 40 MG TABEC PO SCH (06:39)
--- NOTE | 2018-02-15 07:20 | NUR ---
PT ENDORSED TO AM SHIFT NURSE. PT IN STABLE CONDITION
--- NOTE | 2018-02-15 07:21 | NUR ---
RECEIVED BEDSIDE REPORT FROM PRODUCTION SHIFT SUPERVISOR RN. PATIENT IS AAOX4, ABLE TO MAKE NEEDS KNOWN AND FOLLOWS COMMANDS. DENIES PAIN. SINUS SENAIT, ASYMPTOMATIC. PATIENT IS ON ROOM AIR, BREATHING EVEN AND UNLABORED, NO SOB NOTED. PERIPHERAL IV TO RIGHT HAND ASYMPTOMATIC PATENT. SKIN IS INTACT, DRY, WARM TO TOUCH. NO SIGNS OF DISTRESS NOTED. BED IN LOWEST POSITION, LOCKED. CALL LIGHT WITHIN REACH. WILL CONTINUE TO MONITOR.
--- NOTE | 2018-02-15 08:10 | NUR ---
PATIENT ASSISTED UP TO CHAIR. PATIENT EATING BREAKFAST INDEPENDENTLY. NO ACUTE DISTRESS NOTED.
[2018-02-15] MEDS: ATENOLOL 50 MG TAB PO SCH (08:57)
[2018-02-15] MEDS: ENOXAPARIN 30 MG/0.3 ML SYR SUBQ SCH (08:57)
[2018-02-15] MEDS: LOSARTAN 50 MG TAB PO SCH (08:57)
[2018-02-15] MEDS: amLODIPine 5 MG TAB PO SCH (08:57)
--- NOTE | 2018-02-15 11:07 | NUR ---
PATIENT RESTING IN BED, NO ACUTE DISTRESS NOTED.
--- NOTE | 2018-02-15 13:29 | NUR ---
Resource Agent Note: Per Michelle from [facility] / , they can accept patient, however, they need to do a letter of agreement with [facility] before patient is transfer to their facility, Director Waleska made aware.
--- NOTE | 2018-02-15 14:03 | NUR ---
1130 MET WITH PT AT BEDSIDE. 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 PATIENT STATED THAT HE LEFT THE FACILITY HE BECAME ANGRY WITH THEM FOR NOT GIVING HIM HIS CHECK. I DISCUSSED WITH HIM THAT USUALLY SSI GOES TO A PAYEE FOR HIS LIVING EXPENSES AND THAT HE WOULD NOT GET ALL OF THE CHECK. DISCUSSED WITH HIM THAT NO MATER WHERE HE LIVES HE WILL NEED TO PAY. HE DID STATED THAT MAYBE HE SHOULD NOT HAVE LEFT. STATES THAT HE HAS RESIDED THERE FEBRUARY 2014 TILL 02/06/18. ASKED HIM HOW HE GOT TO [place] AND HE STATED THAT HE HAD GOT ON THE METROLINK TO GO AND VISIT A FRIEND IN [place] BUT FELL AND WAS BROUGHT TO [facility]. WILL FOLLOW UP WITH [facility] TO SEE IF PATIENT IS ELIGIBLE FOR RETURN.
--- NOTE | 2018-02-15 14:17 | NUR ---
PATIENT SEEN BY DR. MENDOZA AT BEDSIDE. NO ACUTE DISTRESS NOTED. MD MADE AWARE OF PATIENT DECREASED BP AND HR IN AM. MD ADJUSTED HOME MEDS AT THIS TIME. PATIENT AGREEABLE TO DISCHARGE TO FACILITY. AWAITING PLACEMENT.
--- NOTE | 2018-02-15 15:08 | NUR ---
Wax Engraver Note: I called and spoke with local area network administrator Hallie Nelson from [facility] to inquire if patient may return to their facility upon discharge. She requested I speak with her nurse Katie. Per nurse Wilson, she would like patient's HNP to be fax to their facility, fax number . I faxed information. Corporate Strategy Intern Hallie stated once medical information is reviewed by nurse Wilson they will determine if patient can return to their facility. I called and spoke with nurse Katie, she stated information was reviewed and patient can return to their facility today. I verified their address with Katie, [address] [place] [address]. Director Waleska made aware patient can return to [facility] today. Addendum: 02/15/18 at 1524 by Odette Subramanian SS Per local area network administrator Hallie Nelson from [facility] , they had filed a missing person report with [place] [employer] and she will contact [place] [employer] to inform them patient has been found.
--- NOTE | 2018-02-15 15:46 | NUR ---
Laser Beam Color Scanner Operator Note: Per charge nurse Marylu, she will arrange wheelchair transportation for patient to return to [facility] , [address] [place] [address].
--- NOTE | 2018-02-15 15:55 | NUR ---
CALLED [facility] AND ARRANGED TRANSPORT WITH WHEELCHAIR TOY DESIGNER TIME [address]PM [address] MENDOZA.
--- NOTE | 2018-02-15 16:10 | NUR ---
PATIENT RESTING IN BED, TRANSFERRED TO BED 121A. NO ACUTE DISTRESS NOTED. DENIES DISCOMFORT.
--- NOTE | 2018-02-15 16:16 | NUR ---
0762 RECEIVED CALL FROM KUMAR LO #[id number] [facility] INQUIRING IF PATIENT IS IN THE FACILITY HE HAS BEEN REPORTED A MISSING PERSON FROM [facility]. I VERIFIED HE WAS ADMITTED TO [facility] ON 02/07 AND PER OFFICER REGINE PT WAS REPORTED MISSING 02/06/18. HE VERIFIED THAT HE WAS CONTACTED AFTER THE SW AT [facility] CONTACTED [facility]. HE VERIFIED THAT HE WILL CLOSE THE CASE AND ASKED IF [facility] WILL MAKE ARRANGEMENTS TO TRANSPORT PT TO [facility] AND I INFORMED HIM THAT WE WOULD.
--- NOTE | 2018-02-15 18:57 | NUR ---
SBAR REPORT CALLED TO EDIS GUTIÉRREZ AT [facility]. [phone].
--- NOTE | 2018-02-15 19:37 | NUR ---
SBAR REPORT GIVEN TO NIGHT RN AT PT BEDSIDE. PATIENT TO BE TRANSFERRED TO FACILITY, PATIENT IN AGREEMENT. NO ACUTE DISTRESS NOTED.
--- NOTE | 2018-02-15 19:37 | NUR ---
RECEIVED REPORT FROM DAY SHIFT NURSE AT PT BEDSIDE. PT IS AAOX4. PT IS ON RA WITH RESPIRATIONS EVEN AND UNLABORED. IV ACCESS IN R HAND 22G SALINE LOCKED. SKIN IS INTACT. PT HAS NO C/O PAIN AT THIS TIME. BED IS LOCKED, LOW POSITION WITH SIDE RAILS UP X2. BOARD UPDATED. CALL LIGHT WITHIN REACH. WILL CONTINUE TO MONITOR.
--- NOTE | 2018-02-15 20:12 | NUR ---
PNA VACCINE GIVEN. PT TOLERATED WELL. NO S/SX OF DISTRESS. WILL CONTINUE TO MONITOR.
--- NOTE | 2018-02-15 20:32 | NUR ---
PT LEFT UNIT IN WHEELCHAIR ACCOMPANIED BY TRANSPORTER. PT HAS ALL BELONGINGS WITH HIM AND DISCHARGE PAPERWORK. TELE BOX, IV AND WRISTBANDS REMOVED. PT IN STABLE CONDITION.
[2018-02-16] MEDS ORDERED: PANTOPRAZOLE 40 MG TABEC PO SCH (06:30)
[2018-02-16] MEDS ORDERED: LOSARTAN 50 MG TAB PO SCH (09:00)
== END 2018-02-15 20:35 | DRG 469 ==
LOC: MED 12:18 → MTU 15:10 → MMU 02-15 04:46 → MTU 02-15 15:13
PROVIDERS: ADMIT Hospitalist; ATTEND Hospitalist
PROC: 3E0234Z Introduction of Serum, Toxoid and Vaccine into Muscle, Percutaneous Approach (ICD-10-PCS; principal; 2018-02-15)
DX: N17.9 Acute kidney failure, unspecified (principal); S26.90XA Unspecified injury of heart, unspecified with or without hemopericardium, initial encounter; I48.91 Unspecified atrial fibrillation; E86.0 Dehydration; R62.7 Adult failure to thrive; I10 Essential (primary) hypertension; Z59.0 Homelessness; Z23 Encounter for immunization; Z79.899 Other long term (current) drug therapy
CPT/HCPCS: 36415; 71101; 72100; 76770; 80053; 81001; 82306; 83735; 84484; 85025; 87081; 87086; 90732; 93005; 97110; 97116; 97530; 99285; J1650; Q0092